=== PATIENT | female | born 1985 | race Caucasian/White ===

== ENCOUNTER 2016-12-29 23:53 | Emergency (ER) | payer OTHER ==
[~2016-12-29] VITALS: Ht 165.1 cm; Wt 58.5 kg
[~2016-12-29 23:53] MED LIST: MACROBID PO; NORVIR100 M1 PO; REYATAZ 300MG300 MG PO; SUBOXONE 8 MG-21 TAB SL; TRUVADA 200 MG-1 TAB PR; VALACYCLOVIR500 MG PO
--- NOTE | 2016-12-30 01:48 | ED CARDIAC/CP/PALPITATIONS ---
History of Present Illness General Chief Complaint: Chest Pain Stated Complaint: "CHEST PAIN, WEIRD FEELING IN L ARM" PER PT Source: patient, old records Exam Limitations: no limitations Vital Signs & Intake/Output Vital Signs & Intake/Output Vital Signs Date Time Temp Pulse Resp B/P Pulse O2 O2 Flow FiO2 Ox Delivery Rate 12/30 0148 96.4 55 18 105/65 98 Room Air 12/30 0007 97.6 62 16 119/74 99 Room Air Allergies Coded Allergies: MDX - SULFA (sulfonamide) (SULFA (SULFONAMIDE)) (Intermediate, HIVES 01/27/16) Reconcile Medications Atazanavir Sulfate (Reyataz) 300 MG CAP 1 CAP PO DAILY HIV (Reported) with food Buprenorphine Hydrochloride/ (Suboxone 8 MG-2 MG) 1 TAB TAB 1 TAB SL D SUBSTANCE ABUSE (Reported) Emtricitabine/Tenofovir Diso (Truvada) 1 TAB TAB 1 TAB FL D HIV (Reported) [MACROBID] 100 MG 1 TAB PO BID UTI Ritonavir (Norvir) 100 MG TAB 1 TAB PO D HIV (Reported) VALACYCLOVIR HCL (Valacyclovir) 500 MG TAB 1 TAB PO DAILY HERPES (Reported) Triage Nurses Notes Reviewed? yes HPI: Patient presented with sharp scoping pain in his lower chest that radiates to her back as well as her left shoulder. This is sudden onset. Positive shortness of breath. At its worst the pain was terminal tendon is currently down to 6 out of 10. No aggravating factors. There is no orthopnea or dyspnea on exertion. Patient states her shortness of breath has resolved. Patient has HIV because been nondetectable for the past 6 years. Patient is status post C- section 3 months ago. Past History Travel History Traveled to [place] past 21 day No Medical History Any Pertinent Medical History? 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 No Review of Systems Review of Systems Constitutional: Reports: no symptoms. EENTM: Reports: no symptoms. Respiratory: Reports: see HPI, short of breath. Cardiovascular: Reports: see HPI, chest pain. GI: Reports: no symptoms. Genitourinary: Reports: no symptoms. Musculoskeletal: Reports: no symptoms. Skin: Reports: no symptoms. Neurological/Psychological: Reports: no symptoms. Hematologic/Endocrine: Reports: no symptoms. Immunologic/Allergic: Reports: no symptoms. All Other Systems: Reviewed and Negative Physical Exam Physical Exam General Appearance: well developed/nourished, alert, awake, anxious, mild distress Head: atraumatic, normal appearance Eyes: Bilateral: PERRL, EOMI. Ears, Nose, Throat: normal pharynx, normal ENT inspection, hearing grossly normal Neck: normal inspection, supple, full range of motion Respiratory: normal breath sounds, chest non-tender, no respiratory distress, lungs clear Cardiovascular: regular rate/rhythm, normal peripheral pulses Gastrointestinal: normal bowel sounds, soft, non-tender, no organomegaly Back: normal inspection Extremities: normal inspection, normal capillary refill, normal range of motion, no edema Neurologic/Psych: no motor/sensory deficits, awake, alert, oriented x 3, normal gait Skin: intact, normal color, warm/dry Lymphatic: no anterior cervical josh Core Measures ACS in differential dx? Yes ASA ordered for poss ACS? No-ACS ruled out Severe Sepsis Present: No Septic Shock Present: No Progress Differential Diagnosis: AMI, aortic dissection, musculoskeletal pain, myocarditis, pericarditis, pneumonia, pneumothorax, pulmonary embolism Plan of Care: Orders Procedure Date/time Status Telemetry/[employer] Super[employer]endant 12/30 146 Active TROPONIN LEVEL 12/30 146 Complete HUMAN BETA HCG SCREEN 12/30 146 Complete D-DIMER 12/30 146 Complete COMPREHENSIVE METABOLIC PANEL 12/30 146 Complete CBC WITHOUT DIFFERENTIAL 12/30 146 Complete EKG 12/29 2357 Active Laboratory Tests 12/30/16 0335: Anion Gap 8, Estimated GFR > 60, BUN/Creatinine Ratio 18.6, Glucose 92, Calcium 9.7, Total Bilirubin 0.5, AST 17, ALT 28, Alkaline Phosphatase 49, Troponin I < 0.01, Total Protein 6.8, Albumin 3.9, Globulin 2.9, Albumin/Globulin Ratio 1.3, Total Beta HCG NEGATIVE, D-Dimer < 200, CBC w Diff NO MAN DIFF REQ, RBC 3.97 L, MCV 97.0, MCH 33.0 H, RDW 12.8, MPV 10.0, Gran % 34.2 L, Lymphocytes % 59.4 H , Monocytes % 4.8, Eosinophils % 1.4, Basophils % 0.2, Absolute Granulocytes 2.1 , Absolute Lymphocytes 3.7 H, Absolute Monocytes 0.3, Absolute Eosinophils 0.1, Absolute Basophils 0, PUBS MCHC 34.1 Initial ED EKG: NSR, no ST T wave changes Prior EKG: unchanged Departure Departure Disposition: HOME OR SELF CARE Condition: Stable Clinical Impression Primary Impression: Chest pain, unspecified Referrals: BELKIS JEAN,ONRODRIGO (PCP/Family) Additional Instructions: RETURN IF SYMPTOMS WORSEN OR FOR ANY CONCERNS Departure Forms: Customer Survey General Discharge Information Critical Care Note Critical Care Note Critical Care Time: non-applicable
[2016-12-30 03:50] LABS: ABSOLUTE BASOPHIL COUNT 0 /CUMM (0.0-0.2); ABSOLUTE EOSINOPHIL COUNT 0.1 /CUMM (0.0-0.7); ABSOLUTE GRANULOCYTE CT 2.1 /CUMM (1.4-6.5); ABSOLUTE LYMPH COUNT 3.7 /CUMM (1.2-3.4); ABSOLUTE MONOCYTE COUNT 0.3 /CUMM (0.10-0.60); BASOPHIL % 0.2 % (0.0-2.0); EOSINOPHIL % 1.4 % (0-5); GRANULOCYTE % 34.2 % (42.2-75.2); HEMATOCRIT 38.5 % (37-47); MEAN CORPUSCULAR HGB CONC 34.1 G/DL (33.0-37.0); PLATELET COUNT 162 /CUMM (130-400); RBC DISTRIBUTION WIDTH 12.8 % (11.5-14.5); RED BLOOD CELL CT 3.97 /CUMM (4.20-5.40)
[2016-12-30 04:05] LABS: WHITE BLOOD CELL COUNT 6.3 /CUMM (4.8-10.8)
[2016-12-30 04:33] VITALS: BP 105/54
== END 2016-12-30 04:34 ==
LOC: ERH 23:53
PROVIDERS: Emergency Medicine
DX: R07.9 Chest pain, unspecified (principal)
CPT/HCPCS: 93005; 93010

== ENCOUNTER 2018-02-08 02:48 | Emergency (ER) | payer OTHER ==
[~2018-02-08] VITALS: Ht 165.1 cm; Wt 51.3 kg
[2018-02-08 03:11] VITALS: BP 106/68
--- NOTE | 2018-02-08 03:34 | ED SKIN/ALLERGY COMPLAINT ---
History of Present Illness General Chief Complaint: Skin Rash/ Abcess Stated Complaint: PT C/O ITCHY RASH TO UPPER BODY Source: patient, old records Exam Limitations: no limitations Vital Signs & Intake/Output Vital Signs & Intake/Output Vital Signs Date Time Temp Pulse Resp B/P B/P Pulse O2 O2 Flow FiO2 Mean Ox Delivery Rate 02/08 0311 96.5 80 16 106/68 96 Allergies Coded Allergies: Sulfa (Sulfonamide Antibiotics) (Intermediate, HIVES 11/16/17) Reconcile Medications Atazanavir Sulfate (Reyataz) 300 MG CAP 1 CAP PO DAILY HIV (Reported) with food Buprenorphine Hydrochloride/ (Suboxone 8 MG-2 MG) 1 TAB TAB 1 TAB SL D SUBSTANCE ABUSE (Reported) Prednisone 10 MG TABLET 1 TAB PO DAILY ALLERGIC REACTION TAKE 3 TABS FOR 3 DAYS THEN TAKE 2 TABS FOR 3 DAYS THEN TAKE 1 TAB FOR 3 DAYS Ritonavir (Norvir) 100 MG TAB 1 TAB PO D HIV (Reported) VALACYCLOVIR HCL (Valacyclovir) 500 MG TAB 1 TAB PO DAILY HERPES (Reported) Triage Nurses Notes Reviewed? yes HPI: Patient presents with an itchy rash that started this afternoon and suddenly worsened throughout the evening. Patient denies any new medications or foods. The rash is very itchy. Patient denies any difficulty breathing or swallowing. Patient's and daughter do not have a similar rash. Past History Travel History Traveled to [place] past 21 day No Medical History Any Pertinent Medical History? 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 No Review of Systems Review of Systems Constitutional: Reports: no symptoms. EENTM: Reports: no symptoms. Respiratory: Reports: no symptoms. Cardiovascular: Reports: no symptoms. GI: Reports: no symptoms. Skin: Reports: see HPI, rash. Neurological/Psychological: Reports: no symptoms. Immunologic/Allergic: Reports: no symptoms. Physical Exam Physical Exam General Appearance: well developed/nourished, alert, awake, anxious, mild distress Eyes: Bilateral: PERRL, EOMI. Ears, Nose, Throat: normal pharynx, normal ENT inspection, hearing grossly normal Respiratory: normal breath sounds, chest non-tender, no respiratory distress, lungs clear Neurologic/Psych: no motor/sensory deficits, awake, alert, oriented x 3, normal gait, normal mood/affect Skin: rash Skin Problem Location: neck, upper extremities Skin Problem Character: urticarial Progress Differential Diagnosis: allergic reaction Plan of Care: Current Medications Sig/Allie Start time Last Medication Dose Stop Time Status Admin Diphenhydramine HCl 25 MG ONCE ONE 02/08 345 UNVr (Benadryl) 02/08 346 Prednisone 60 MG ONCE ONE 02/08 345 UNVr 02/08 346 Departure Departure Disposition: HOME OR SELF CARE Condition: Stable Clinical Impression Primary Impression: Hives Referrals: Roberto JEAN,Caitlin Caballero (PCP/Family) Additional Instructions: RETURN IF SYMPTOMS WORSEN OR FOR ANY CONCERNS Departure Forms: Customer Survey General Discharge Information Prescriptions: Current Visit Scripts Prednisone 1 TAB PO DAILY #18 TAB TAKE 3 TABS FOR 3 DAYS THEN TAKE 2 TABS FOR 3 DAYS THEN TAKE 1 TAB FOR 3 DAYS
[2018-02-08] MEDS ORDERED: PREDNISONE10 M2 PO (03:39)
== END 2018-02-08 03:55 ==
LOC: ERH 02:48
DX: L50.9 Urticaria, unspecified (principal)

== ENCOUNTER 2018-06-24 02:26 | Emergency (ER) | payer OTHER ==
[~2018-06-24] VITALS: Ht 157.5 cm; Wt 49.9 kg
[~2018-06-24 02:26] MED LIST changes: +PREDNISONE10 M2 PO
--- NOTE | 2018-06-24 02:32 | ED CARDIAC/CP/PALPITATIONS ---
History of Present Illness General Chief Complaint: Chest Pain Stated Complaint: "CP THAT COMES AND GOES" PER PT Source: patient, old records Exam Limitations: no limitations Vital Signs & Intake/Output Vital Signs & Intake/Output Vital Signs Date Time Temp Pulse Resp B/P B/P Pulse O2 O2 Flow FiO2 Mean Ox Delivery Rate 06/24 0233 98.1 63 20 148/68 100 Room Air Allergies Coded Allergies: Sulfa (Sulfonamide Antibiotics) (Intermediate, HIVES 11/16/17) Reconcile Medications Atazanavir Sulfate (Reyataz) 300 MG CAP 1 CAP PO DAILY HIV (Reported) with food Buprenorphine Hydrochloride/ (Suboxone 8 MG-2 MG) 1 TAB TAB 1 TAB SL D SUBSTANCE ABUSE (Reported) Prednisone 10 MG TABLET 1 TAB PO DAILY ALLERGIC REACTION TAKE 3 TABS FOR 3 DAYS THEN TAKE 2 TABS FOR 3 DAYS THEN TAKE 1 TAB FOR 3 DAYS Ritonavir (Norvir) 100 MG TAB 1 TAB PO D HIV (Reported) VALACYCLOVIR HCL (Valacyclovir) 500 MG TAB 1 TAB PO DAILY HERPES (Reported) Triage Nurses Notes Reviewed? yes HPI: Patient presents with fleeting chest pain that has been present since earlier this evening. The pain lasts for secondary to and then goes away. The pain is in the left central portion of her chest that radiates through to her back. There is no shortness of breath. There are no aggravating or mitigating factors. Pain only lasts a second or 2 at the most. Patient states she told her boss about the pain and he wanted her checked out before she came back to work tomorrow. At its worse the pain is 4 out of 10. When the pain goes away it is a 0 out of 10. Past History Travel History Traveled to [place] past 21 day No Medical History Any Pertinent Medical History? 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 No Review of Systems Review of Systems Constitutional: Reports: no symptoms. EENTM: Reports: no symptoms. Respiratory: Reports: no symptoms. Cardiovascular: Reports: see HPI, chest pain. GI: Reports: no symptoms. Genitourinary: Reports: no symptoms. Musculoskeletal: Reports: no symptoms. Skin: Reports: no symptoms. Neurological/Psychological: Reports: no symptoms. Hematologic/Endocrine: Reports: no symptoms. Immunologic/Allergic: Reports: no symptoms. All Other Systems: Reviewed and Negative Physical Exam Physical Exam General Appearance: well developed/nourished, alert, awake, anxious, mild distress Head: atraumatic, normal appearance Eyes: Bilateral: PERRL, EOMI. Ears, Nose, Throat: normal pharynx, normal ENT inspection, hearing grossly normal Neck: normal inspection, supple, full range of motion Respiratory: normal breath sounds, chest non-tender, no respiratory distress, lungs clear Cardiovascular: regular rate/rhythm, normal peripheral pulses Gastrointestinal: normal bowel sounds, soft, non-tender, no organomegaly Back: normal inspection, normal range of motion Extremities: normal inspection, normal capillary refill, normal range of motion, no edema Neurologic/Psych: no motor/sensory deficits, awake, alert, oriented x 3, normal gait, normal mood/affect Skin: intact, normal color, warm/dry Lymphatic: no anterior cervical josh Core Measures ACS in differential dx? No CVA/TIA Diagnosis No Sepsis Present: No Sepsis Focused Exam Completed? No All Positive = PERC Ruled Out: Positive: age < 50 years, heart rate < 100 bpm, O2 sat > 94%, no hemoptysis, no hormone use, no prior DVT or PE, no unilateral leg swellin, no surgery/trauma w/ in 4w. Wells Criteria Score: 0 Progress Differential Diagnosis: AMI, aortic dissection, musculoskeletal pain, myocarditis, pericarditis, pulmonary embolism Plan of Care: Orders Procedure Date/time Status TROPONIN LEVEL 06/24 240 Complete HUMAN BETA HCG SCREEN 06/24 240 Complete D-DIMER 06/24 240 Complete COMPREHENSIVE METABOLIC PANEL 06/24 240 Complete CBC WITHOUT DIFFERENTIAL 06/24 240 Complete EKG 06/24 228 Active Laboratory Tests 06/24/18 0259: Anion Gap 6, Estimated GFR > 60, BUN/Creatinine Ratio 16.3, Glucose 86, Calcium 9.1, Total Bilirubin 0.5, AST 16, ALT 24, Alkaline Phosphatase 41, Troponin I < 0.01, Total Protein 6.6, Albumin 3.8, Globulin 2.8, Albumin/Globulin Ratio 1.4, Total Beta HCG NEGATIVE, D-Dimer High Sensitivty < 200, CBC w Diff MAN DIFF ORDERED, RBC 3.92 L, MCV 93.5, MCH 31.3 H, MCHC 33.5, RDW 13.8, MPV 9.1, Gran % 35.6 L, Lymphocytes % 57.2 H, Monocytes % 4.9, Eosinophils % 2.0, Basophils % 0.3, Absolute Granulocytes 2.4, Segmented Neutrophils 33 L, Absolute Lymphocytes 3.8 H, Lymphocytes 63 H, Monocytes 2, Absolute Monocytes 0.3, Eosinophils 1, Absolute Eosinophils 0.1, Basophils 1, Absolute Basophils 0, Platelet Estimate ADEQUATE, Normocytic RBCs VERIFIED, Normochromic RBCs VERIFIED , Fld Total RBCs Counted 100 Initial ED EKG: NSR, no ST T wave changes Prior EKG: unchanged Departure Departure Disposition: HOME OR SELF CARE Condition: Stable Clinical Impression Primary Impression: Chest pain, unspecified Referrals: Roberto JEAN,Caitlin Caballero (PCP/Family) Additional Instructions: RETURNIF SYMPTOMS WORSEN OR FOR ANY CONCERNS Departure Forms: Customer Survey General Discharge Information Critical Care Note Critical Care Note Critical Care Time: non-applicable
[2018-06-24 03:14] LABS: ABSOLUTE BASOPHIL COUNT 0 /CUMM (0.0-0.2); ABSOLUTE EOSINOPHIL COUNT 0.1 /CUMM (0.0-0.7); ABSOLUTE GRANULOCYTE CT 2.4 /CUMM (1.4-6.5); ABSOLUTE LYMPH COUNT 3.8 /CUMM (1.2-3.4); ABSOLUTE MONOCYTE COUNT 0.3 /CUMM (0.10-0.60); BASOPHIL % 0.3 % (0.0-2.0); GRANULOCYTE % 35.6 % (42.2-75.2); HEMATOCRIT 36.7 % (37-47); MEAN CORPUSCULAR HGB 31.3 PG (27.0-31.0); MEAN CORPUSCULAR HGB CONC 33.5 G/DL (33.0-37.0); MEAN CORPUSCULAR VOLUME 93.5 FL (81.0-99.0); MEAN PLATELET VOLUME 9.1 FL (7.4-10.4); PLATELET COUNT 162 /CUMM (130-400); RBC DISTRIBUTION WIDTH 13.8 % (11.5-14.5); RED BLOOD CELL CT 3.92 /CUMM (4.20-5.40); WHITE BLOOD CELL COUNT 6.7 /CUMM (4.8-10.8)
[2018-06-24 04:16] VITALS: BP 132/69
== END 2018-06-24 04:18 ==
LOC: ERH 02:26
PROVIDERS: Emergency Medicine
DX: R07.9 Chest pain, unspecified (principal); F19.10 Other psychoactive substance abuse, uncomplicated; B20 Human immunodeficiency virus [HIV] disease
CPT/HCPCS: 93005; 93010